=== PATIENT | female | born 1955 | race Caucasian/White ===

== ENCOUNTER 2024-08-09 23:36 | Emergency (ER) | payer MEDICARE, OTHER ==
[2024-08-10] MEDS ORDERED: Glucagon,Human Recombinant 1 MG Vial IM PRN (01:06)
[2024-08-10] MEDS ORDERED: 50% Dextrose in Water 50 ML Syringe IVPUSH PRN (01:06)
[2024-08-10] MEDS: Insulin Lispro 100 Unit/ML 3 ML KwikPen SUBCUT ONE (01:19)
== END 2024-08-10 03:15 | disposition home or self-care (01) ==
LOC: JP.ED 23:36
DX: T85.694A Other mechanical complication of insulin pump, initial encounter (principal); E78.00 Pure hypercholesterolemia, unspecified; I10 Essential (primary) hypertension; E10.9 Type 1 diabetes mellitus without complications; Z79.4 Long term (current) use of insulin; Z79.899 Other long term (current) drug therapy
CPT/HCPCS: 82947; 99284; J1815; A9270-GY